=== PATIENT | male | born 1975 | race Caucasian/White ===

== ENCOUNTER 2021-01-22 12:29 | Emergency (ER) | payer SELFPAY ==
[2021-01-22] MEDS ORDERED: Lidocaine 1% (PF) 30 ML VIAL ONE ×2 (15:17→15:26)
== END 2021-01-22 16:31 | disposition home or self-care (01) ==
LOC: ERS 12:29
DX: L02.212 Cutaneous abscess of back [any part, except buttock and flank] (principal); L03.312 Cellulitis of back [any part except buttock and flank]
CPT/HCPCS: 10060; J2001